=== PATIENT | male | born 1980 | race Two or more races ===

== ENCOUNTER 2019-09-10 10:45 | Emergency (ER) | payer OTHER ==
[~2019-09-10] VITALS: Ht 182.9 cm; Wt 55.0 kg
[2019-09-10] MEDS ORDERED: TRAMADOL 50MG TABLET PO ONE (12:15)
[2019-09-10 13:27] VITALS: BP 115/72
== END 2019-09-10 13:29 | disposition home or self-care (01) ==
LOC: ER 10:45
DX: S06.0X0A Concussion without loss of consciousness, initial encounter (principal); S00.90XA Unspecified superficial injury of unspecified part of head, initial encounter; Y04.0XXA Assault by unarmed brawl or fight, initial encounter; Y93.89 Activity, other specified; Y92.89 Other specified places as the place of occurrence of the external cause; Y99.8 Other external cause status
CPT/HCPCS: 72040; 99283